=== PATIENT | male | born 1960 | race Caucasian/White ===

== ENCOUNTER 2018-07-04 13:53 | Inpatient (IN) | payer MEDICARE, MEDICAID ==
[2018-07-04] VITALS (9 sets, daily range): BP systolic 108–149; BP diastolic 75–101; BMI 54.7
[~2018-07-04] VITALS: Ht 185.4 cm; Wt 185.9 kg
--- NOTE | ~2018-07-04 | MORECARE ---
CASE MANAGEMENT DISCHARGE SUMMARY PATIENT: STAS HERNÁNDEZ UNIT: [id number] ADM DATE: 07/04/18 AGE: 58 : 64 SEX: M ROOM/BED: D.2309 AUTHOR: MARSHA MTZ PHYSICIAN: REFERRING PHYSICIAN: JOVANNA VAZQUEZ DO DATE OF SERVICE: 07/09/18 Discharge Plan Patient Name: STAS HERNÁNDEZ Facility: [facility]:[place] : 1960 Planned Disposition: Anticipated Discharge Date: Discharge Date: Expected LOS: Initial Reviewer: [email or web address] Initial Review Date: 07/09/2018 Generated: 07/09/18 8:31 pm Patient Name: STAS HERNÁNDEZ Page 64695 at 1931 All edits/amendments must be made on the electronic document DICTATION DATE: 07/09/181930 BUGGY LOADER: DEB 07/09/181930 RPT#: [id number] DC DATE: STATUS: ADM IN [facility] [address] [place] [address] END OF REPORT
--- NOTE | ~2018-07-04 | HEMODYNAMI ---
PATIENT:STAS HERNÁNDEZ MEDICAL RECORD: [id number] : 64 LOCATION:[facility] D.2309 ADMISSION DATE: 07/04/18 Generatedon:07/06/201814:29 Patient name: STAS HERNÁNDEZ Patient #: [id number] SSN: : 1960 Date of study: 07/06/2018 Page: Of Hemodynamic Procedure Report Patient Data Patient Demographics Procedure consent was obtained First Name: STAS Gender: Male Last Name: BETTY : 1960 Patient #: [id number] Age: 58 year(s) Race: Unknown Additional ID: [id number] Contact details Address: [address] [place] [address] State: [place] City: [facility] Zip code: [address] Admission Admission Data Admission Date: 07/04/2018 Admission Time: 16:20 Room #: D.2309 Procedure Procedure Types Cath Procedure Peripheral Cath Diagnostic Procedure Liver TIPSS Procedure Description Procedure Date Procedure Date: 07/06/2018 Procedure Start Time: 13:00 Procedure Staff Name Function Fabien Herrera MD Performing Physician Jhonathan Lou RT Scrub Jane Travis RN Nurse Mary Doan RT Monitor Daniel Conn CRNA Additional personnel Procedure Data Cath Procedure Fluoroscopy Diagnostic fluoroscopy Total fluoroscopy Time: time: 19.8 min 19.8 min Diagnostic fluoroscopy Total fluoroscopy dose: dose: 4908 mGy 4908 mGy Contrast Material Contrast Material Type Amount (ml) Isovue 300 65 Diagnostic catheters Device Type Used For End Catheter Placement Merit UHF Pigtail VESSEL SIZING 5Fr 65CM catheter ([id number]) DIAGNOSTIC MPA-2 5Fr catheter ([id number]) Procedure Medications Medication Administration Route Dosage Heparin Flush Bag added to field 2 bags (1000units/500ml NS) Lidocaine 1% added to field 20 Ancef (1Gm/50ml NS) I.V.P.B 1 g Hemodynamics Rest Heart Rate: 87 (bpm) Pressure Samples Time Site Value (mmHg) Purpose Heart Use Rate(bpm) 13:14 RA 4/ (3) Snapshot 84 13:15 Hepatic (6) Snapshot 84 13:54 Portal 32/32(31) Snapshot 88 14:10 Portal 29/24(25) Snapshot 85 14:10 Portal 27/24(24) Snapshot 86 14:10 Portal 29/24(25) Snapshot 86 14:11 Portal 30/23(25) Snapshot 86 14:12 Portal 25/22(23) Snapshot 85 Snapshots Pre Cath Intra NCS Post Cath Vital Signs Time Heart Resp SPO2 etCO2 NIBP (mmHg) Rhythm Pain Sedation Rate (ipm) (%) (mmHg) Status Level (bpm) 12:26:45 88 14 96 0 138/83(112) NSR 0 (11) 10(A) , No pain 12:36:52 88 46 100 0 Aborted NSR 0 (11) 10(A) , No pain 12:38:54 87 12 99 0 129/88(105) NSR 0 (11) 10(A) , No pain 12:43:29 83 20 100 0 125/79(98) NSR 0 (11) 10(A) , No pain 12:48:01 83 100 0 117/79(92) NSR 0 (11) 10(A) , No pain 12:52:26 85 12 100 0 120/81(94) NSR 0 (11) 10(A) , No pain 12:56:56 86 15 100 0 115/76(88) NSR 0 (11) 10(A) , No pain 13:01:26 88 5 100 0 110/71(90) NSR 0 (11) 10(A) , No pain 13:05:55 84 13 100 0 104/72(78) NSR 0 (11) 10(A) , No pain 13:10:23 84 99 0 106/64(79) NSR 0 (11) 10(A) , No pain 13:14:47 84 99 0 114/72(87) NSR 0 (11) 10(A) , No pain 13:19:20 83 7 99 0 113/68(84) NSR 0 (11) 10(A) , No pain 13:23:46 83 99 0 112/71(88) NSR 0 (11) 10(A) , No pain 13:28:14 83 9 99 0 108/70(84) NSR 0 (11) 10(A) , No pain 13:33:13 90 17 99 0 Measuring NSR 0 (11) 10(A) , No pain 13:33:40 90 14 99 0 135/88(109) NSR 0 (11) 10(A) , No pain 13:38:10 88 16 99 0 130/88(100) NSR 0 (11) 10(A) , No pain 13:42:43 87 13 99 0 136/84(101) NSR 0 (11) 10(A) , No pain 13:47:11 86 15 99 0 116/83(102) NSR 0 (11) 10(A) , No pain 13:51:37 85 18 99 0 119/78(92) NSR 0 (11) 10(A) , No pain 13:56:04 86 17 99 0 125/82(103) NSR 0 (11) 10(A) , No pain 14:00:36 82 12 99 0 110/76(86) NSR 0 (11) 10(A) , No pain 14:04:52 87 17 98 0 126/90(105) NSR 0 (11) 10(A) , No pain 14:09:16 84 21 96 0 142/93(115) NSR 0 (11) 10(A) , No pain 14:13:55 85 15 94 0 142/93(111) NSR 0 (11) 10(A) , No pain 14:18:33 96 17 85 0 146/97(115) NSR 0 (11) 10(A) , No pain 14:23:12 93 31 86 0 128/85(99) NSR 0 (11) 10(A) , No pain 14:28:11 90 10 0 Measuring NSR 0 (11) 10(A) , No pain Medications Time Medication Route Dose Verified Delivered Reason Notes Effe ctiveness by by 12:26:02 Heparin Flush added 2 Fabien Conn used for Bag to bags Javier Herrera procedure (1000units/500ml field MD PRINCE NS) 12:40:38 Lidocaine 1% added 20ml Fabien Conn used for to vial Javier Herrera procedure field MD PRINCE 12:51:19 Ancef (1Gm/50ml I.V.P.B 1 g Fabien Lara Per NS) Javier Travis RN physician MD Procedure Log Time Note 12:11:34 Jhonathan Lou RT (R) (CV) sent for patient. Start room use. 12:11:44 Time tracking: Regular hours (M-F 7:00 - 5:00) 12:11:49 Plan of Care:Hemodynamics will remain stable., Cardiac rhythm will remain stable., Comfort level will be maintained., Respiratory function will remain adequate., Patient/ family verbilizes understanding of procedure., Procedure tolerated without complication., Recovers from procedure without complications.. 12:11:52 Use device set IR Diagnostic 12:11:53 ACIST Syringe (07427) opened to sterile field. 12:11:53 ACIST Hand Control (23509) opened to sterile field. 12:11:54 ACIST Manifold (73122) opened to sterile field. 12:11:54 Bag Decanter (2001S) opened to sterile field. 12:11:54 Sterile Angiographic Pack opened to sterile field. 12:11:55 Tegaderm 4 x 4 (1626W) opened to sterile field. 12:12:04 Patient received from ICU to IR Alert and oriented. Tansferred to table in Supine position. 12:12:05 Correct patient and procedure confirmed by team. 12:12:06 Warm blankets applied, and ute hugger turned on for patient comfort. 12:12:08 Signed procedure consent form obtained from patient. 12:12:09 ECG and BP/O2 sat monitors applied to patient. 12:12:11 Full Disclosure recording started 12:12:11 - 12:12:15 H&P Date Dictated: 07/06/2018 Within 30 days and on chart.. 12:12:16 Pre-procedure instructions explained to patient. 12:12:16 Pre-op teaching completed and patient verbalized understanding. 12:12:18 Family unavailable. 12:12:19 Patient NPO since Midnight. 12:12:22 - 12:12:43 SEE ANESTHESIA NOTE FOR PRE PROCEDURE TIVA 12:12:44 - 12:20:10 Right neck area was prepped with chlora-prep and draped in sterile fashion 12:20:11 Alarms reviewed by RAlma N. 12:20:12 Sharps counted by scrub and verified by RAlmaN. 12:26:02 Heparin Flush Bag (1000units/500ml NS) 2 bags added to field was administered by Fabien Herrera MD; used for procedure; 12:35:57 A EyeCyte UHF Pigtail VESSEL SIZING 5Fr 65CM catheter ([id number]) was advanced over the wire and used for . 12:36:01 A DIAGNOSTIC MPA-2 5Fr catheter ([id number]) was advanced over the wire an d used for . 12:36:03 TORQUE DEVICE PLASTIC .038 ( TD01) opened to sterile field. 12:36:04 BENTSON 145cm wire (M43688) opened to sterile field. 12:36:05 KIT, TRANSJUGULAR LIVER ACCESS R opened to sterile field. 12:36:06 GLIDE WIRE MERIT Angled 260cm ([id number]) opened to sterile field. 12:36:08 TUBING Contrast Injection High Pressure (JAH246O) opened to sterile field. 12:36:10 TUBING Contrast Injection High Pressure (TLA304W) opened to sterile field. 12:36:11 Micropuncture VSI 4FR kit opened to sterile field. 12:37:49 Baseline sample Acquired. 12:37:58 - 12:38:00 ----Pre-sedation anethsthesia assessment.----see anesthesia notes for monitoring of patient during procedure. general anesthesia 12:40:38 Lidocaine 1% 20ml vial added to field was administered by Fabien diez MD; used for procedure; 12:51:19 Ancef (1Gm/50ml NS) 1 g I.V.P.B was administered by Jane Travis RN; Per physician; 12:59:11 Physician arrived 12:59:31 --------ALL STOP TIME OUT------ 12:59:32 Final Timeout: patient, procedure, and site verified with staff and physician. All members of the team are in agreement. 13:00:13 Procedure started. 13:00:20 Local anesthetic to right IJ vein with Lidocaine 1% by Fabien Herrera MD.INITIAL ACCESS ONLY 13:03:40 Venous access obtained using ultrasound guidance. 13:14:10 Zero performed for pressure channel P1 13:17:29 GLIDE CATHETER 5FR ANGLED 65cm (CG507) opened to sterile field. 13:18:08 AMPLATZ Short Taper 260cm wire ([id number]) opened to sterile field. 13:35:19 KIT, TRANSJUGULAR LIVER ACCESS R opened to sterile field. 13:42:55 INFLATOR BasixTOUCH (TQ9132) opened to sterile field. 13:44:22 CXI Catheter 90cm (Z81414) opened to sterile field. 13:50:09 Inflate balloon Inflation number: 1 A Evercross 4 x 4 x 135 Balloon ([id number]) was prepped and advanced across the Undefined1, then inflated. 14:03:21 VIATORR 8-10x7/2cm stent ([id number]) was deployed across Undefined1 . 14:05:46 Inflate balloon Inflation number: 2 A Evercross 8 x 40 x 80 ([id number]) was prepped and advanced across the Undefined1, then inflated. 14:06:47 Inflate balloon Inflation number: 3 A Evercross 10 x 40 x 80 Balloon ([id number]) was prepped and advanced across the Undefined1, then inflated. 14:17:05 Procedure ended.(Physican Out) 14:19:46 Fluoroscopy time 19.80 minutes. 14:19:51 Fluoroscopy dose: 4908 mGy 14:19:51 Flurop Dose total: 4908 14:20:02 Contrast amount:Isovue 300 65ml. 14:20:05 Procedure and supply charges have been captured, reviewed, submitted an d are correct. 14:29:20 Report given to ICU. 14:29:52 Vital chart was stopped Intervention Summary Intervention Notes Time ActionType Lesion and Equipment Used Action# Pressure Duration Attributes 13:50:09 Inflate Undefined1 Evercross 4 x 4 1 0 00:00 balloon x 135 Balloon ([id number]) 14:03:21 Deploy self Undefined1 VIATORR 10x7 1 expanding stent stent ([id number]) 14:05:46 Inflate Undefined1 Evercross 8 x 2 0 00:00 balloon 40 x 80 ([id number]) 14:06:47 Inflate Undefined1 Evercross 10 x 3 0 00:00 balloon 40 x 135 Balloon ([id number]) Device Usage Item Name Manufacture Quantity Catalog Number Hospital Part Current M inimal Lot# / Charge Number Stock Stock Serial# Code ACIST Syringe Acist 1 87699 872894 966008 148915 2 0 (43186) Medical Systems Inc ACIST Hand Acist 1 89431 367503 755159 153170 5 Control (24407) Medical Systems Inc ACIST Manifold Acist 1 63715 221513 137372 128573 5 (72195) Medical Systems Inc Bag Decanter Microtek 1 2001S 862276 40660 768888 5 (2001S) Medical Inc. Sterile Cardinal 1 [id number] 198581 151620 5 Angiographic Health Pack Tegaderm 4 x 4 3M 1 1626W 048818 975085 881032 5 (1626W) Merit UHF Merit 1 7602-20M65 871373 249438 5 Pigtail VESSEL Medical SIZING 5Fr 65CM catheter ([id number]) DIAGNOSTIC Cardinal 1 687525T 083314 519522 570737 5 MPA-2 5Fr Health catheter (827131Q) TORQUE DEVICE Buras 1 TD01 450092 668572 137906 5 PLASTIC .038 ( Scientific TD01) BENTSON 145cm Cook Medical 1 B55732 978281 587364 5 wire (L23258) KIT, Cook Medical 2 J69705 867080 666349 5 [id number] TRANSJUGULAR 1280847 LIVER ACCESS R GLIDE WIRE Merit 1 [id number] 390027 942833 857399 5 [id number] MERIT Angled Medical 260cm ([id number]) TUBING Contrast Merit 2 NCJ593S 156561 697428 618995 5 Injection High Medical Pressure (MHA041L) Micropuncture VSI VASCULAR 1 7266V 103611 185537 5 VSI 4FR kit SOLUTIONS GLIDE CATHETER Terumo 1 CG507 607372 822645 5 5FR ANGLED 65cm (CG507) AMPLATZ Short Buras 1 [id number] 430314 749155 865922 5 Taper 260cm Scientific wire ([id number]) INFLATOR Merit 1 UI9857 224315 100166 669999 5 nodila [facility] (RV7443) CXI Catheter Cook Medical 1 H42903 467520 831871 824042 5 7932076 90cm (V62589) Evercross 4 x 4 Medtronic 1 [id number] 510615 698170 798541 5 [id number] x 135 Balloon ([id number]) VIATORR 10x7 [place] 1 ADN186987 831023 383751 471085 5 [id number] stent ([id number]) Evercross 8 x Medtronic 1 [id number] 622010 468966 570128 5 [id number] 40 x 80 ([id number]) Evercross 10 x Medtronic 1 [id number] 717165 755658 628363 5 [id number] 40 x 135 Balloon ([id number]) Signature Audit [place] Stage Time Signature Unsigned Intra-Procedure 07/06/2018 Mary Doan 2:29:47 PM RT(R) Signatures Monitor : Mary Doan RT Signature : Date : Time : [facility] [address] [place] [address]
--- NOTE | ~2018-07-04 | MORECARE ---
CASE MANAGEMENT DISCHARGE SUMMARY PATIENT: STAS HERNÁNDEZ UNIT: [id number] ADM DATE: 07/04/18 AGE: 58 : 64 SEX: M ROOM/BED: D.2309 AUTHOR: MARSHA MTZ PHYSICIAN: REFERRING PHYSICIAN: JOVANNA VAZQUEZ DO DATE OF SERVICE: 07/11/18 Discharge Plan Patient Name: STAS HERNÁNDEZ Facility: [facility]:[place] : 1960 Planned Disposition: Anticipated Discharge Date: Discharge Date: Expected LOS: Initial Reviewer: [email or web address] Initial Review Date: 07/09/2018 Generated: 07/11/18 10:41 am External Providers External Provider: [facility] Next Contact Date: Service Request Date: Service Type: Resolution: Reviewer: Comments: Last DP export: 07/09/18 6:31 p Patient Name: STAS HERNÁNDEZ Page 05388 at 0941 All edits/amendments must be made on the electronic document DICTATION DATE: 07/11/18940 PRODUCTION ANALYST: DEB 07/11/18940 RPT#: [id number] DC DATE: STATUS: ADM IN [facility] [address] [place] [address] END OF REPORT
--- NOTE | ~2018-07-04 | MORECARE ---
CASE MANAGEMENT DISCHARGE SUMMARY PATIENT: STAS HERNÁNDEZ UNIT: [id number] ADM DATE: 07/04/18 AGE: 58 : 64 SEX: M ROOM/BED: D.2309 AUTHOR: MARSHA MTZ PHYSICIAN: REFERRING PHYSICIAN: MANI VAZQUEZ DO DATE OF SERVICE: 07/11/18 Discharge Plan Patient Name: STAS HERNÁNDEZ [facility] : 1960 Planned Disposition: Acute Care Hospital Anticipated Discharge Date: Discharge Date: Expected LOS: Initial Reviewer: [email or web address] Initial Review Date: 07/11/2018 Generated: 07/11/18 3:43 pm Comments DCP- Discharge Planning Updated by [email or web address]: Marixa Vu on 07/11/18 1:[address] Patient Name: STAS HERNÁNDEZ Admission Status: ER Accout number: [id number] Admission Date: 07-04-2018 : 1960 Admission Diagnosis:GASTROINTESTINAL HEMORRHAGE, UNSPECIFIED Attending: Mani Vazquez Current LOS: 7 Anticipated DC Date: Planned Disposition: [facility] Primary Insurance: [employer] Discharge Planning Comments:07/11/18 @ 0900 CM received notice this am that patient needs transfer to [facility] for liver transplant evaluation / admission. CM contacted transfer center and faxed face sheet. 07/11/18 @ 1112 CM contacted transfer center and patient has been accepted to [facility] but waiting on ICU bed availability. CM will continue to follow and assist as needed with discharge planning / needs. Checkering Machine Operator: Marixa Vu Last DP export: 07/11/18 1:32 p Patient Name: STAS HERNÁNDEZ Page 59800 at 1443 All edits/amendments must be made on the electronic document DICTATION DATE: 07/11/181442 MARKETING MGR: DEB 07/11/18 144 RPT#: [id number] DC DATE: STATUS: ADM IN [facility] [address] [place] [address] END OF REPORT
--- NOTE | ~2018-07-04 | MORECARE ---
CASE MANAGEMENT DISCHARGE SUMMARY PATIENT: STAS HERNÁNDEZ UNIT: [id number] ADM DATE: 07/04/18 AGE: 58 : 64 SEX: M ROOM/BED: D.2309 AUTHOR: MARSHA MTZ PHYSICIAN: REFERRING PHYSICIAN: JOVANNA VAZQUEZ DO DATE OF SERVICE: 07/11/18 Discharge Plan Patient Name: STAS HERNÁNDEZ [facility] [facility] 1960 Planned Disposition: Acute Care Hospital Anticipated Discharge Date: Discharge Date: Expected LOS: Initial Reviewer: [email or web address] Initial Review Date: 07/11/2018 Generated: 07/11/18 3:32 pm Last DP export: 07/11/18 8:41 a Patient Name: STAS HERNÁNDEZ Page 14900 at 1432 All edits/amendments must be made on the electronic document DICTATION DATE: 07/11/18 1432 DIRECTOR HEART: DEB 07/11/18 1432 RPT#: [id number] DC DATE: STATUS: ADM IN [facility] [address] [place] [address] END OF REPORT
--- NOTE | ~2018-07-04 | MORECARE ---
CASE MANAGEMENT DISCHARGE SUMMARY PATIENT: STAS HERNÁNDEZ UNIT: [id number] ADM DATE: 07/04/18 AGE: 58 : 64 SEX: M ROOM/BED: D.2309 AUTHOR: MARSHA MTZ PHYSICIAN: REFERRING PHYSICIAN: MANI VAZQUEZ DO DATE OF SERVICE: 07/12/18 Discharge Plan Patient Name: STAS HERNÁNDEZ Facility: [facility]:[place] : 1960 Planned Disposition: Acute Care Hospital Anticipated Discharge Date: Discharge Date: 07/11/2018 Expected LOS: Initial Reviewer: [email or web address] Initial Review Date: 07/11/2018 Generated: 07/12/18 3:23 pm Comments DCP- Discharge Planning Updated by [email or web address]: Marixa Vu on 07/11/18 1:[address] Patient Name: STAS HERNÁNDEZ Admission Status: ER Accout number: [id number] Admission Date: 07-04-2018 : 1960 Admission Diagnosis:GASTROINTESTINAL HEMORRHAGE, UNSPECIFIED Attending: Mani Vazquez Current LOS: 7 Anticipated DC Date: Planned Disposition: [facility] Primary Insurance: [employer] Discharge Planning Comments:07/11/18 @ 0900 CM received notice this am that patient needs transfer to [facility] for liver transplant evaluation / admission. CM contacted transfer center and faxed face sheet. 07/11/18 @ 1115 CM contacted transfer center and patient has been accepted to [facility] but waiting on ICU bed availability. CM will continue to follow and assist as needed with discharge planning / needs. Clipper Machine Operator: Marixa Vu Last DP export: 07/11/18 1:43 p Patient Name: STAS HERNÁNDEZ Page 67740 at 1423 All edits/amendments must be made on the electronic document DICTATION DATE: 07/12/181422 PRESCHOOL ADVISER: DEB 07/12/181422 RPT#: [id number] DC DATE:07/11/18 STATUS: DIS IN [facility] [address] [place] [address] END OF REPORT
[2018-07-04 15:20] LABS: INR 1.32 (0.85-1.17); PROTIME 15.8 SECONDS (11.6-15.0)
[2018-07-04 15:23] LABS: BASOPHILS 0.4 % (0-2); EOSINOPHILS 2.4 % (0-7); HEMATOCRIT 37.8 % (42.0-54.0); HEMOGLOBIN 12.7 g/dL (13.5-17.5); IMMATURE GRANULOCYTES 0.4 % (0-5); LYMPHOCYTES 19.2 % (15-50); MCH 31.1 pg (26.0-34.0); MCHC 33.6 g/dL (31.0-37.0); MCV 92.4 fL (80.0-100.0); MONOCYTES 3.9 % (2-11); NEUTROPHILS 73.7 % (40-80); PLATELET COUNT 187 10x3/uL (130-400); RBC 4.09 10x6/uL (4.20-6.10); RDW 13.9 % (11.5-14.5); WBC 10.6 10x3/uL (4.8-10.8)
[2018-07-04 15:28] LABS: ALBUMIN 2.6 g/dL (3.4-5.0); ALKALINE PHOSPHATASE 83 U/L (46-116); ALT (SGPT) 32 U/L (10-68); BILIRUBIN - TOTAL 1.89 mg/dL (0.2-1.3); CALC OSMOLALITY 280 mosm/kg (275-300); CALCIUM 8.5 mg/dL (8.5-10.1); CARBON DIOXIDE 27.1 mmol/L (21.0-32.0); CHLORIDE - SERUM 103 mmol/L (98-107); CREATININE - SERUM 1.8 mg/dL (0.6-1.3); GLUCOSE 215 mg/dL (74-106); POTASSIUM - SERUM 4.7 mmol/L (3.5-5.1); PROTEIN - SERUM 6.8 g/dL (6.4-8.2); SODIUM 136 mmol/L (136-145); UREA NITROGEN 20 mg/dL (7-18); eGFR NON AFRICAN AMERICAN 42 mL/min (90-120)
[2018-07-04 15:32] LABS: AMYLASE - SERUM 32 U/L (25-115); LIPASE 120 U/L (73-393); TROPONIN-I < 0.017 ng/mL (0.000-0.060)
[2018-07-04] MEDS ORDERED: FERROUS SULFAT325 MG PO (19:07)
[2018-07-04] MEDS ORDERED: FISH OIL 1,0001 CA1 PO (19:08)
[2018-07-04] MEDS ORDERED: CHRONULAC30 ML PO (19:09)
[2018-07-04 21:00] LABS: HEMATOCRIT 37.4 % (42.0-54.0); HEMOGLOBIN 12.4 g/dL (13.5-17.5)
[2018-07-04 22:23] LABS: PROTEIN - URINE 9.7 mg/dL (0.0-11.9)
[2018-07-04 22:24] LABS: CREATININE - URINE 230.9 mg/dL (30-125)
[2018-07-05] VITALS (25 sets, daily range): BP systolic 112–160; BP diastolic 77–96; BMI 54.6
[2018-07-05 00:52] LABS: APPEARANCE CLOUDY (CLEAR); BILIRUBIN NEGATIVE (NEGATIVE); COLOR DK YELLOW (YELLOW); GLUCOSE NEGATIVE (NEGATIVE); KETONE NEGATIVE (NEGATIVE); NITRITE POSITIVE (NEGATIVE); PROTEIN TRACE mg/dL (NEGATIVE); UROBILINOGEN NORMAL (NORMAL)
[2018-07-05 00:53] LABS: AMORPHOUS SEDIMENT >1+ /lpf (NONE SEEN); BACTERIA MANY /hpf (NONE SEEN); EPITHELIAL CELLS 0-5 /hpf (0-5); RED CELLS - URINE NONE SEEN /hpf (0-5); WHITE CELLS - URINE 0-5 /hpf (0-5)
[2018-07-05 04:55] LABS: BASOPHILS 0.2 % (0-2); EOSINOPHILS 0.8 % (0-7); HEMATOCRIT 30.5 % (42.0-54.0); HEMOGLOBIN 10.2 g/dL (13.5-17.5); IMMATURE GRANULOCYTES 0.3 % (0-5); LYMPHOCYTES 18.5 % (15-50); MCHC 33.4 g/dL (31.0-37.0); MCV 92.7 fL (80.0-100.0); MEAN PLATELET VOLUME 10.3 fL (7.4-10.4); MONOCYTES 5.2 % (2-11); RBC 3.29 10x6/uL (4.20-6.10); RDW 14.2 % (11.5-14.5); WBC 9.1 10x3/uL (4.8-10.8)
[2018-07-05 05:04] LABS: INR 1.41 (0.85-1.17); PROTIME 16.7 SECONDS (11.6-15.0)
[2018-07-05 05:09] LABS: PLATELET COUNT 148 10x3/uL (130-400)
[2018-07-05 05:39] LABS: ALBUMIN 2.6 g/dL (3.4-5.0); ALKALINE PHOSPHATASE 69 U/L (46-116); BILIRUBIN - TOTAL 1.85 mg/dL (0.2-1.3); CALCIUM 8.1 mg/dL (8.5-10.1); CARBON DIOXIDE 26.2 mmol/L (21.0-32.0); CHLORIDE - SERUM 105 mmol/L (98-107); CREATINE KINASE 327 UL (21-232); CREATININE - SERUM 1.6 mg/dL (0.6-1.3); MAGNESIUM - SERUM 1.6 mg/dL (1.8-2.4); POTASSIUM - SERUM 5.1 mmol/L (3.5-5.1); PROTEIN - SERUM 6.3 g/dL (6.4-8.2); SODIUM 139 mmol/L (136-145); UREA NITROGEN 24 mg/dL (7-18); eGFR NON AFRICAN AMERICAN 48 mL/min (90-120)
[2018-07-05 05:42] LABS: ALT (SGPT) 58 U/L (10-68); CALC OSMOLALITY 284 mosm/kg (275-300); GLUCOSE 161 mg/dL (74-106)
[2018-07-05 05:44] LABS: CKMB 2.7 U/L (0.0-3.6)
[2018-07-05 13:33] LABS: HEMATOCRIT 27.6 % (42.0-54.0); HEMOGLOBIN 9.4 g/dL (13.5-17.5)
[2018-07-05 19:12] LABS: HEMOGLOBIN 9.3 g/dL (13.5-17.5)
[2018-07-06] VITALS (22 sets, daily range): BP systolic 96–152; BP diastolic 65–98
[2018-07-06 03:41] LABS: BASOPHILS 0.3 % (0-2); EOSINOPHILS 1.6 % (0-7); HEMOGLOBIN 9.2 g/dL (13.5-17.5); IMMATURE GRANULOCYTES 0.3 % (0-5); LYMPHOCYTES 19.2 % (15-50); MCH 30.7 pg (26.0-34.0); MCHC 32.9 g/dL (31.0-37.0); MCV 93.3 fL (80.0-100.0); MEAN PLATELET VOLUME 9.5 fL (7.4-10.4); MONOCYTES 6.6 % (2-11); RDW 14.3 % (11.5-14.5)
[2018-07-06 03:45] LABS: INR 1.23 (0.85-1.17); PROTIME 14.9 SECONDS (11.6-15.0)
[2018-07-06 03:47] LABS: WBC 3.7 10x3/uL (4.8-10.8)
[2018-07-06 03:48] LABS: PLATELET COUNT 102 10x3/uL (130-400)
[2018-07-06 03:57] LABS: ALBUMIN 2.8 g/dL (3.4-5.0); BILIRUBIN - TOTAL 1.46 mg/dL (0.2-1.3); CARBON DIOXIDE 30.4 mmol/L (21.0-32.0); CREATININE - SERUM 1.8 mg/dL (0.6-1.3); MAGNESIUM - SERUM 1.7 mg/dL (1.8-2.4); PHOSPHOROUS 3.2 mg/dL (2.5-4.9); PROTEIN - SERUM 6.6 g/dL (6.4-8.2)
[2018-07-06 03:58] LABS: ANION GAP 9.3 mmol/L (8-16); POTASSIUM - SERUM 3.7 mmol/L (3.5-5.1)
[2018-07-06 04:26] LABS: THYROID STIMULATING HORMONE 109.06 uIU/mL (0.36-3.74)
[2018-07-06 09:16] LABS: HEPATITIS C ANTIBODY <0.1 S/CO RAT (0.0-0.9)
[2018-07-06 09:46] LABS: HEMATOCRIT 24.1 % (42.0-54.0); HEMOGLOBIN 9.9 g/dL (13.5-17.5)
[2018-07-06 15:59] LABS: HEMATOCRIT 26.3 % (42.0-54.0); HEMOGLOBIN 8.8 g/dL (13.5-17.5)
[2018-07-06 20:11] LABS: HEMATOCRIT 27.3 % (42.0-54.0)
[2018-07-07] VITALS (11 sets, daily range): BP systolic 112–155; BP diastolic 70–96
[2018-07-07 03:53] LABS: ALBUMIN 2.7 g/dL (3.4-5.0); ANION GAP 13.6 mmol/L (8-16); BILIRUBIN - TOTAL 2.53 mg/dL (0.2-1.3); CALCIUM 7.8 mg/dL (8.5-10.1); CARBON DIOXIDE 26.1 mmol/L (21.0-32.0); CREATININE - SERUM 1.7 mg/dL (0.6-1.3); MAGNESIUM - SERUM 1.9 mg/dL (1.8-2.4); PHOSPHOROUS 2.5 mg/dL (2.5-4.9); POTASSIUM - SERUM 3.7 mmol/L (3.5-5.1); PROTEIN - SERUM 6.5 g/dL (6.4-8.2)
[2018-07-07 04:11] LABS: BASOPHILS 0.2 % (0-2); EOSINOPHILS 0.6 % (0-7); HEMOGLOBIN 10.3 g/dL (13.5-17.5); IMMATURE GRANULOCYTES 0.6 % (0-5); LYMPHOCYTES 5.1 % (15-50); MCHC 33.2 g/dL (31.0-37.0); MCV 93.4 fL (80.0-100.0); MONOCYTES 5.1 % (2-11); NEUTROPHILS 88.4 % (40-80); PLATELET COUNT 90 10x3/uL (130-400); RBC 3.32 10x6/uL (4.20-6.10); RDW 14.7 % (11.5-14.5)
[2018-07-07 04:12] LABS: WBC 10.1 10x3/uL (4.8-10.8)
[2018-07-07 09:39] LABS: HEMATOCRIT 28.9 % (42.0-54.0); HEMOGLOBIN 9.6 g/dL (13.5-17.5)
[2018-07-07 11:43] LABS: HEMATOCRIT 28.8 % (42.0-54.0); HEMOGLOBIN 9.7 g/dL (13.5-17.5)
[2018-07-07 23:21] LABS: HEMATOCRIT 31.1 % (42.0-54.0); HEMOGLOBIN 10.5 g/dL (13.5-17.5)
[2018-07-08] VITALS (25 sets, daily range): BP systolic 99–165; BP diastolic 53–115; Ht 185.4 cm; Wt 185.9 kg
[2018-07-08 04:29] LABS: BASOPHILS 0.4 % (0-2); EOSINOPHILS 1.6 % (0-7); HEMATOCRIT 31.7 % (42.0-54.0); HEMOGLOBIN 10.6 g/dL (13.5-17.5); IMMATURE GRANULOCYTES 0.5 % (0-5); LYMPHOCYTES 11.2 % (15-50); MCH 30.9 pg (26.0-34.0); MCHC 33.4 g/dL (31.0-37.0); MCV 92.4 fL (80.0-100.0); MEAN PLATELET VOLUME 10.2 fL (7.4-10.4); MONOCYTES 7.9 % (2-11); NEUTROPHILS 78.4 % (40-80); RBC 3.43 10x6/uL (4.20-6.10); RDW 15.2 % (11.5-14.5)
[2018-07-08 04:31] LABS: PLATELET COUNT 65 10x3/uL (130-400); WBC 7.5 10x3/uL (4.8-10.8)
[2018-07-08 04:43] LABS: INR 1.51 (0.85-1.17); PROTIME 17.6 SECONDS (11.6-15.0)
[2018-07-08 04:51] LABS: PLATELET ESTIMATE DECREASED
[2018-07-08 04:53] LABS: ALBUMIN 2.5 g/dL (3.4-5.0); ANION GAP 12.1 mmol/L (8-16); BILIRUBIN - TOTAL 3.92 mg/dL (0.2-1.3); CALCIUM 8.3 mg/dL (8.5-10.1); CARBON DIOXIDE 27.8 mmol/L (21.0-32.0); CREATININE - SERUM 1.6 mg/dL (0.6-1.3); POTASSIUM - SERUM 3.9 mmol/L (3.5-5.1); PROTEIN - SERUM 6.1 g/dL (6.4-8.2)
[2018-07-08 11:31] LABS: HEMATOCRIT 33.2 % (42.0-54.0)
[2018-07-09] VITALS (25 sets, daily range): BP systolic 98–154; BP diastolic 51–99
[2018-07-09 05:05] LABS: BASOPHILS 0.4 % (0-2); EOSINOPHILS 0.6 % (0-7); HEMATOCRIT 32.2 % (42.0-54.0); HEMOGLOBIN 10.8 g/dL (13.5-17.5); IMMATURE GRANULOCYTES 1.3 % (0-5); LYMPHOCYTES 9.8 % (15-50); MCHC 33.5 g/dL (31.0-37.0); MCV 92.5 fL (80.0-100.0); MEAN PLATELET VOLUME 9.6 fL (7.4-10.4); NEUTROPHILS 78.9 % (40-80); PLATELET COUNT 70 10x3/uL (130-400); RBC 3.48 10x6/uL (4.20-6.10); RDW 15.6 % (11.5-14.5); WBC 10.6 10x3/uL (4.8-10.8)
[2018-07-09 05:19] LABS: INR 1.75 (0.85-1.17); PROTIME 19.8 SECONDS (11.6-15.0)
[2018-07-09 05:29] LABS: ALBUMIN 2.7 g/dL (3.4-5.0); ANION GAP 14.4 mmol/L (8-16); BILIRUBIN - TOTAL 5.56 mg/dL (0.2-1.3); CALCIUM 8.3 mg/dL (8.5-10.1); CARBON DIOXIDE 26.3 mmol/L (21.0-32.0); CREATININE - SERUM 1.7 mg/dL (0.6-1.3); POTASSIUM - SERUM 3.7 mmol/L (3.5-5.1); PROTEIN - SERUM 6.1 g/dL (6.4-8.2)
[2018-07-10] VITALS (24 sets, daily range): BP systolic 93–164; BP diastolic 53–134
[2018-07-10 05:32] LABS: BASOPHILS 0.3 % (0-2); EOSINOPHILS 1.3 % (0-7); HEMATOCRIT 31.8 % (42.0-54.0); HEMOGLOBIN 10.8 g/dL (13.5-17.5); IMMATURE GRANULOCYTES 2.4 % (0-5); LYMPHOCYTES 12.6 % (15-50); MCH 31.5 pg (26.0-34.0); MCV 92.7 fL (80.0-100.0); MEAN PLATELET VOLUME 8.7 fL (7.4-10.4); MONOCYTES 8.2 % (2-11); NEUTROPHILS 75.2 % (40-80); PLATELET COUNT 67 10x3/uL (130-400); RBC 3.43 10x6/uL (4.20-6.10); RDW 16.3 % (11.5-14.5); WBC 11.2 10x3/uL (4.8-10.8)
[2018-07-10 05:54] LABS: INR 1.76 (0.85-1.17); PROTIME 19.9 SECONDS (11.6-15.0)
[2018-07-10 06:20] LABS: ALBUMIN 2.6 g/dL (3.4-5.0); BILIRUBIN - DIRECT 3.29 mg/dL (0.00-0.30); BILIRUBIN - INDIRECT 2.62 mg/dL (0.00-1.00); BILIRUBIN - TOTAL 5.91 mg/dL (0.2-1.3); CALCIUM 8.2 mg/dL (8.5-10.1); CARBON DIOXIDE 26.8 mmol/L (21.0-32.0); CREATININE - SERUM 1.7 mg/dL (0.6-1.3); MAGNESIUM - SERUM 1.8 mg/dL (1.8-2.4); PROTEIN - SERUM 6.4 g/dL (6.4-8.2)
[2018-07-10 06:38] LABS: ANION GAP 14.2 mmol/L (8-16)
[2018-07-10 16:58] LABS: ANION GAP 14.6 mmol/L (8-16); CALCIUM 7.9 mg/dL (8.5-10.1); CARBON DIOXIDE 27.3 mmol/L (21.0-32.0); CREATININE - SERUM 1.7 mg/dL (0.6-1.3); MAGNESIUM - SERUM 1.5 mg/dL (1.8-2.4)
[2018-07-10 16:59] LABS: PHOSPHOROUS 1.8 mg/dL (2.5-4.9)
[2018-07-10 17:00] LABS: POTASSIUM - SERUM 2.9 mmol/L (3.5-5.1)
[2018-07-11] VITALS (28 sets, daily range): BP systolic 91–158; BP diastolic 20–106
[2018-07-11 04:02] LABS: ALBUMIN 2.4 g/dL (3.4-5.0); ANION GAP 10.6 mmol/L (8-16); BILIRUBIN - TOTAL 4.65 mg/dL (0.2-1.3); CALCIUM 7.9 mg/dL (8.5-10.1); CARBON DIOXIDE 28.6 mmol/L (21.0-32.0); CREATININE - SERUM 1.6 mg/dL (0.6-1.3); MAGNESIUM - SERUM 1.8 mg/dL (1.8-2.4); POTASSIUM - SERUM 3.2 mmol/L (3.5-5.1); PROTEIN - SERUM 5.8 g/dL (6.4-8.2)
[2018-07-11 04:08] LABS: PHOSPHOROUS 2.6 mg/dL (2.5-4.9)
[2018-07-11 04:12] LABS: BASOPHILS 0.5 % (0-2); EOSINOPHILS 2.1 % (0-7); HEMATOCRIT 29.1 % (42.0-54.0); HEMOGLOBIN 9.8 g/dL (13.5-17.5); LYMPHOCYTES 12.7 % (15-50); MCH 31.2 pg (26.0-34.0); MCHC 33.7 g/dL (31.0-37.0); MCV 92.7 fL (80.0-100.0); MEAN PLATELET VOLUME 9.4 fL (7.4-10.4); MONOCYTES 8.7 % (2-11); RBC 3.14 10x6/uL (4.20-6.10); RDW 16.9 % (11.5-14.5)
[2018-07-11 04:14] LABS: WBC 7.9 10x3/uL (4.8-10.8)
[2018-07-11 04:15] LABS: PLATELET COUNT 46 10x3/uL (130-400)
[2018-07-11 15:32] LABS: BASOPHILS 0.6 % (0-2); EOSINOPHILS 1.8 % (0-7); HEMATOCRIT 29.3 % (42.0-54.0); HEMOGLOBIN 9.9 g/dL (13.5-17.5); IMMATURE GRANULOCYTES 2.5 % (0-5); LYMPHOCYTES 14.8 % (15-50); MCH 31.7 pg (26.0-34.0); MCHC 33.8 g/dL (31.0-37.0); MCV 93.9 fL (80.0-100.0); MEAN PLATELET VOLUME 8.7 fL (7.4-10.4); MONOCYTES 7.2 % (2-11); NEUTROPHILS 73.1 % (40-80); RBC 3.12 10x6/uL (4.20-6.10); RDW 17.5 % (11.5-14.5); WBC 6.7 10x3/uL (4.8-10.8)
[2018-07-11 15:52] LABS: PLATELET COUNT 47 10x3/uL (130-400)
== END 2018-07-11 23:42 | disposition short-term general hospital (02) | DRG 405 ==
LOC: D.ER 13:53 → D.ICU 16:20
PROVIDERS: Emergency Medicine; Family Medicine; Internal Medicine Gastroenterology; Internal Medicine Nephrology; Radiology Diagnostic Radiology
PROC: 0DJ08ZZ Inspection of Upper Intestinal Tract, Via Natural or Artificial Opening Endoscopic (ICD-10-PCS; 2018-07-04)
PROC: 06183J4 Bypass Portal Vein to Hepatic Vein with Synthetic Substitute, Percutaneous Approach (ICD-10-PCS; principal; 2018-07-06 10:45)
PROC: 05H633Z Insertion of Infusion Device into Left Subclavian Vein, Percutaneous Approach (ICD-10-PCS; 2018-07-08)
DX: K74.60 Unspecified cirrhosis of liver (principal); I85.11 Secondary esophageal varices with bleeding; R18.8 Other ascites; N17.9 Acute kidney failure, unspecified; K76.6 Portal hypertension; K72.90 Hepatic failure, unspecified without coma; K75.81 Nonalcoholic steatohepatitis (NASH); E11.9 Type 2 diabetes mellitus without complications; F17.200 Nicotine dependence, unspecified, uncomplicated; D64.9 Anemia, unspecified; E87.5 Hyperkalemia; E83.42 Hypomagnesemia; E03.9 Hypothyroidism, unspecified; E66.01 Morbid (severe) obesity due to excess calories; I11.0 Hypertensive heart disease with heart failure; I50.9 Heart failure, unspecified

== ENCOUNTER 2018-07-19 15:30 | Inpatient (IN) | payer MEDICARE, MEDICAID ==
[~2018-07-19] VITALS: Ht 185.4 cm; Wt 187.9 kg
--- NOTE | ~2018-07-19 | MORECARE ---
CASE MANAGEMENT DISCHARGE SUMMARY PATIENT: STAS HERNÁNDEZ UNIT: [id number] ADM DATE: 07/19/18 AGE: 58 : 64 SEX: M ROOM/BED: D.2234 AUTHOR: SMITHDOC PHYSICIAN: REFERRING PHYSICIAN: JOE CLARKE MD DATE OF SERVICE: 07/24/18 Discharge Plan Patient Name: STAS HERNÁNDEZ Facility: [facility]:[place] : 1960 Planned Disposition: Home Anticipated Discharge Date: Discharge Date: 07/23/2018 Expected LOS: 0 Initial Reviewer: [email or web address] Initial Review Date: 07/23/2018 Generated: 07/24/18 9:52 am Comments DCP- Discharge Planning Updated by [email or web address]: Jennifer Elizondo on 07/23/18 11:[address] Patient Name: STAS HERNÁNDEZ Admission Status: ER Accout number: [id number] Admission Date: 07-19-2018 : 1960 Admission Diagnosis:HEPATIC FAILURE, UNSPECIFIED WITHOUT COMA Attending: JOE CLARKE Current LOS: 4 Anticipated DC Date: Planned Disposition: Home Primary Insurance: [employer] Discharge Planning Comments: CM met with patient to discuss discharge planning. States he lives up 2 flights of stairs in an apartment building with his and 26 year old son. States he ambulates with a cane. States his older son lives across the sood from him. States he is completely independent with all ADL's and IADL's. States he does not have any outside services assisting in the home. States he is not home bound and declines home health services. States he does not need additional DME. States his will pick him up on discharge. CM will continue to follow and assist with discharge planning/needs. Oleo Hasher And Renderer: Jennifer Elizondo DCPIA - Discharge Planning Initial Assessment Updated by [email or web address]: Jennifer Elizondo on 07/23/18 12:43 pm * Is the patient Alert and Oriented? Yes * How many steps to enter\exit or inside your home? 2 flights/ * PCP Dr. Couch * Pharmacy [facility] on [facility] [address] * Preadmission Environment Home with Family * ADLs Independent * Equipment Cane * List name and contact numbers for known caregivers / representatives who currently or will assist patient after discharge: Bailey - - [phone] Nba - son - [phone] * Verbal permission to speak to the caregivers and representatives has been obtained from the patient. Yes * Community resources currently utilized None * Additional services required to return to the preadmission environment? No * Can the patient safely return to the preadmission environment? Yes * Has this patient been hospitalized within the prior 30 days at any hospital? Yes Coverage Notice Reviewer: [email or web address] Mary Elizondo Notice Issued Date-Time: 07/23/2018 12:37 Notice Type: IM Discharge Notice Notice Delivered To: Patient Relationship to Patient: Self Geothermal Operations Manager Name: Delivery Method: HAND - Hand Delivered Anat Days: Prior Verbal Notification: Recipient Understood Notice: Yes Recipient Signature: Yes Med Rec Note Co-signed by Attending: Coverage Notice Comment: IMM explained, signed, copy given, original placed on MR Last DP export: 07/23/18 11:54 Patient Name: STAS HERNÁNDEZ Page 23065 at 0853 All edits/amendments must be made on the electronic document DICTATION DATE: 07/24/18851 CHILLER HAND: DEB 07/24/18851 RPT#: [id number] DC DATE:07/23/18 STATUS: DIS IN [facility] [address] [place] [address] END OF REPORT
--- NOTE | ~2018-07-19 | MORECARE ---
CASE MANAGEMENT DISCHARGE SUMMARY PATIENT: STAS HERNÁNDEZ UNIT: [id number] ADM DATE: 07/19/18 AGE: 58 : 64 SEX: M ROOM/BED: D.2234 AUTHOR: SMITHDOC PHYSICIAN: REFERRING PHYSICIAN: JOE CLARKE MD DATE OF SERVICE: 07/23/18 Discharge Plan Patient Name: STAS HERNÁNDEZ Facility: [facility]:[place] : 1960 Planned Disposition: Home Anticipated Discharge Date: Discharge Date: Expected LOS: Initial Reviewer: [id number] Initial Review Date: 07/23/2018 Generated: 07/23/18 1:53 pm Comments DCP- Discharge Planning Updated by [id number]: Jennifer Elizondo on 07/23/18 11:[address] Patient Name: STAS HERNÁNDEZ Admission Status: ER Accout number: [id number] Admission Date: 07-19-2018 : 1960 Admission Diagnosis:HEPATIC FAILURE, UNSPECIFIED WITHOUT COMA Attending: JOE CLARKE Current LOS: 4 Anticipated DC Date: Planned Disposition: Home Primary Insurance: [employer] Discharge Planning Comments: CM met with patient to discuss discharge planning. States he lives up 2 flights of stairs in an apartment building with his and 26 year old son. States he ambulates with a cane. States his older son lives across the sood from him. States he is completely independent with all ADL's and IADL's. States he does not have any outside services assisting in the home. States he is not home bound and declines home health services. States he does not need additional DME. States his will pick him up on discharge. CM will continue to follow and assist with discharge planning/needs. Cashier Associate: Jennifer Elizondo DCPIA - Discharge Planning Initial Assessment Updated by [email or web address]: Jennifer Elizondo on 07/23/18 12:43 pm * Is the patient Alert and Oriented? Yes * How many steps to enter\exit or inside your home? 2 flights/ * PCP Dr. Couch * Pharmacy [facility] on [facility] [address] * Preadmission Environment Home with Family * ADLs Independent * Equipment Cane * List name and contact numbers for known caregivers / representatives who currently or will assist patient after discharge: Bailey - - [phone] Nba - son - [phone] * Verbal permission to speak to the caregivers and representatives has been obtained from the patient. Yes * Community resources currently utilized None * Additional services required to return to the preadmission environment? No * Can the patient safely return to the preadmission environment? Yes * Has this patient been hospitalized within the prior 30 days at any hospital? Yes Coverage Notice Reviewer: [id number] Mary Elizondo Notice Issued Date-Time: 07/23/2018 12:37 Notice Type: IM Discharge Notice Notice Delivered To: Patient Relationship to Patient: Self Wheel Assembler Name: Delivery Method: HAND - Hand Delivered Anat Days: Prior Verbal Notification: Recipient Understood Notice: Yes Recipient Signature: Yes Med Rec Note Co-signed by Attending: Coverage Notice Comment: IMM explained, signed, copy given, original placed on MR Last DP export: 07/23/18 11:47 Patient Name: STAS HERNÁNDEZ Page [id number] at 1254 All edits/amendments must be made on the electronic document DICTATION DATE: 07/23/18 1253 GROCERY STORE ASSOCIATE: DEB 07/23/18 1253 RPT#: [id number] DC DATE: STATUS: ADM IN [facility] [address] [place] [address] END OF REPORT
--- NOTE | ~2018-07-19 | MORECARE ---
CASE MANAGEMENT DISCHARGE SUMMARY PATIENT: STAS HERNÁNDEZ UNIT: [id number] ADM DATE: 07/19/18 AGE: 58 : 64 SEX: M ROOM/BED: D.2234 AUTHOR: MARSHA MTZ PHYSICIAN: REFERRING PHYSICIAN: JOE CLARKE MD DATE OF SERVICE: 07/23/18 Discharge Plan Patient Name: STAS HERNÁNDEZ Facility: [facility]:[place] : 1960 Planned Disposition: Home Anticipated Discharge Date: Discharge Date: Expected LOS: Initial Reviewer: [email or web address] Initial Review Date: 07/23/2018 Generated: 07/23/18 1:47 pm DCPIA - Discharge Planning Initial Assessment Updated by [email or web address]: Jennifer Elizondo on 07/23/18 12:43 pm * Is the patient Alert and Oriented? Yes * How many steps to enter\exit or inside your home? 2 flights/ * PCP Dr. Couch * Pharmacy [facility] on [facility] * Preadmission Environment Home with Family * ADLs Independent * Equipment Cane * List name and contact numbers for known caregivers / representatives who currently or will assist patient after discharge: Bailey - - [phone] Nba - son - [phone] * Verbal permission to speak to the caregivers and representatives has been obtained from the patient. Yes * Community resources currently utilized None * Additional services required to return to the preadmission environment? No * Can the patient safely return to the preadmission environment? Yes * Has this patient been hospitalized within the prior 30 days at any hospital? Yes Coverage Notice Reviewer: [id number] - Jennifer Elizondo Notice Issued Date-Time: 07/23/2018 12:37 Notice Type: IM Discharge Notice Notice Delivered To: Patient Relationship to Patient: Self An/Ssn 2 4 Operator Name: Delivery Method: HAND - Hand Delivered Anat Days: Prior Verbal Notification: Recipient Understood Notice: Yes Recipient Signature: Yes Med Rec Note Co-signed by Attending: Coverage Notice Comment: IMM explained, signed, copy given, original placed on MR Patient Name: STAS HERNÁNDEZ Page [id number] at 1247 All edits/amendments must be made on the electronic document DICTATION DATE: 07/23/18 124 LINING STAMPER: DEB 07/23/18 1246 RPT#: [id number] DC DATE: STATUS: ADM IN [facility] [address] [place] [address] END OF REPORT
[~2018-07-19 15:30] MED LIST: CHRONULAC30 ML PO; FERROUS SULFAT325 MG PO; FISH OIL 1,0001 CA1 PO
[2018-07-19 16:16] LABS: BASOPHILS 0.2 % (0-2); EOSINOPHILS 0.7 % (0-7); HEMATOCRIT 30.9 % (42.0-54.0); IMMATURE GRANULOCYTES 0.2 % (0-5); LYMPHOCYTES 16.5 % (15-50); MCH 31.2 pg (26.0-34.0); MCHC 32.4 g/dL (31.0-37.0); MCV 96.3 fL (80.0-100.0); MEAN PLATELET VOLUME 9.4 fL (7.4-10.4); MONOCYTES 7.4 % (2-11); RBC 3.21 10x6/uL (4.20-6.10); RDW 20.7 % (11.5-14.5); WBC 4.3 10x3/uL (4.8-10.8)
[2018-07-19 16:17] LABS: PLATELET COUNT 72 10x3/uL (130-400)
[2018-07-19 16:30] LABS: APTT 34.2 SECONDS (22.8-39.4); INR 1.53 (0.85-1.17); PROTIME 17.8 SECONDS (11.6-15.0)
[2018-07-19 16:37] LABS: ALBUMIN 2.4 g/dL (3.4-5.0); ALKALINE PHOSPHATASE 336 U/L (46-116); ALT (SGPT) 177 U/L (10-68); BILIRUBIN - TOTAL 3.27 mg/dL (0.2-1.3); CALC OSMOLALITY 281 mosm/kg (275-300); CALCIUM 9.3 mg/dL (8.5-10.1); CARBON DIOXIDE 26.6 mmol/L (21.0-32.0); CHLORIDE - SERUM 102 mmol/L (98-107); CREATININE - SERUM 1.7 mg/dL (0.6-1.3); GLUCOSE 182 mg/dL (74-106); POTASSIUM - SERUM 3.8 mmol/L (3.5-5.1); PROTEIN - SERUM 7.3 g/dL (6.4-8.2); SODIUM 139 mmol/L (136-145); UREA NITROGEN 11 mg/dL (7-18); eGFR NON AFRICAN AMERICAN 44 mL/min (90-120)
[2018-07-19 17:08] LABS: PLATELET ESTIMATE DECREASED
[2018-07-19 17:13] LABS: CKMB 4.4 U/L (0.0-3.6); CREATINE KINASE 309 UL (21-232); MAGNESIUM - SERUM 1.9 mg/dL (1.8-2.4); TROPONIN-I < 0.017 ng/mL (0.000-0.060)
[2018-07-19 18:00] LABS: APPEARANCE CLEAR (CLEAR); COLOR YELLOW (YELLOW); NITRITE NEGATIVE (NEGATIVE); SPECIFIC GRAVITY 1.015 (1.005-1.020)
[2018-07-19 18:01] LABS: BILIRUBIN 1+ (NEGATIVE); GLUCOSE NEGATIVE (NEGATIVE); KETONE NEGATIVE (NEGATIVE); PROTEIN TRACE mg/dL (NEGATIVE)
[2018-07-19 18:04] LABS: BACTERIA MANY /hpf (NONE SEEN); RED CELLS - URINE 0-5 /hpf (0-5); WHITE CELLS - URINE 25-50 /hpf (0-5)
[2018-07-19 18:05] LABS: UDS - AMPHET NEGATIVE QUAL (NEGATIVE); UDS - BARB NEGATIVE QUAL (NEGATIVE); UDS - BENZO NEGATIVE QUAL (NEGATIVE); UDS - COCAINE NEGATIVE QUAL (NEGATIVE); UDS - OPIATE NEGATIVE QUAL (NEGATIVE); UDS - PCP NEGATIVE QUAL (NEGATIVE); UDS - THC POSITIVE QUAL (NEGATIVE)
[2018-07-19 19:20] VITALS: BP 148/76
[2018-07-19 21:18] VITALS: BP 131/66
[2018-07-19 22:32] VITALS: BP 140/90
[2018-07-20 12:24] VITALS: BMI 54.7
[2018-07-20 17:15] LABS: BASOPHILS 0.2 % (0-2); EOSINOPHILS 0.7 % (0-7); HEMATOCRIT 30.5 % (42.0-54.0); HEMOGLOBIN 9.7 g/dL (13.5-17.5); IMMATURE GRANULOCYTES 0.2 % (0-5); LYMPHOCYTES 14.5 % (15-50); MCH 30.9 pg (26.0-34.0); MCHC 31.8 g/dL (31.0-37.0); MCV 97.1 fL (80.0-100.0); MEAN PLATELET VOLUME 9.8 fL (7.4-10.4); MONOCYTES 10.4 % (2-11); PLATELET COUNT 71 10x3/uL (130-400); RBC 3.14 10x6/uL (4.20-6.10); RDW 20.9 % (11.5-14.5); WBC 4.4 10x3/uL (4.8-10.8)
[2018-07-20 17:35] LABS: ALBUMIN 2.5 g/dL (3.4-5.0); ANION GAP 14.5 mmol/L (8-16); BILIRUBIN - TOTAL 3.55 mg/dL (0.2-1.3); CALCIUM 8.7 mg/dL (8.5-10.1); CARBON DIOXIDE 24.5 mmol/L (21.0-32.0); CREATININE - SERUM 1.8 mg/dL (0.6-1.3); PROTEIN - SERUM 7.4 g/dL (6.4-8.2)
[2018-07-21] VITALS (7 sets, daily range): BP systolic 117–160; BP diastolic 74–99
[2018-07-21 03:21] LABS: BASOPHILS 0.2 % (0-2); HEMATOCRIT 30.3 % (42.0-54.0); HEMOGLOBIN 9.7 g/dL (13.5-17.5); LYMPHOCYTES 18.5 % (15-50); MCV 96.8 fL (80.0-100.0); MONOCYTES 11.3 % (2-11); PLATELET COUNT 78 10x3/uL (130-400); RBC 3.13 10x6/uL (4.20-6.10); RDW 20.8 % (11.5-14.5); WBC 4.1 10x3/uL (4.8-10.8)
[2018-07-21 03:33] LABS: INR 1.64 (0.85-1.17); PROTIME 18.8 SECONDS (11.6-15.0)
[2018-07-21 03:46] LABS: ALBUMIN 2.4 g/dL (3.4-5.0); ANION GAP 14.3 mmol/L (8-16); BILIRUBIN - TOTAL 3.31 mg/dL (0.2-1.3); CALCIUM 8.6 mg/dL (8.5-10.1); CARBON DIOXIDE 24.4 mmol/L (21.0-32.0); CREATININE - SERUM 1.8 mg/dL (0.6-1.3); MAGNESIUM - SERUM 2.1 mg/dL (1.8-2.4); POTASSIUM - SERUM 3.7 mmol/L (3.5-5.1); PROTEIN - SERUM 7.3 g/dL (6.4-8.2)
[2018-07-22] VITALS (10 sets, daily range): BP systolic 138–164; BP diastolic 84–106; Ht 185.4 cm; Wt 187.9 kg
[2018-07-22 04:34] LABS: BASOPHILS 0.3 % (0-2); EOSINOPHILS 1.3 % (0-7); HEMATOCRIT 27.9 % (42.0-54.0); HEMOGLOBIN 8.8 g/dL (13.5-17.5); LYMPHOCYTES 18.3 % (15-50); MCH 31.1 pg (26.0-34.0); MCHC 31.5 g/dL (31.0-37.0); MCV 98.6 fL (80.0-100.0); MEAN PLATELET VOLUME 9.9 fL (7.4-10.4); MONOCYTES 10.7 % (2-11); NEUTROPHILS 69.4 % (40-80); RBC 2.83 10x6/uL (4.20-6.10); RDW 20.7 % (11.5-14.5); WBC 3.8 10x3/uL (4.8-10.8)
[2018-07-22 04:47] LABS: PLATELET COUNT 61 10x3/uL (130-400)
[2018-07-22 04:55] LABS: ANION GAP 13.7 mmol/L (8-16); BILIRUBIN - TOTAL 2.73 mg/dL (0.2-1.3); CARBON DIOXIDE 21.9 mmol/L (21.0-32.0); CREATININE - SERUM 1.6 mg/dL (0.6-1.3); POTASSIUM - SERUM 3.6 mmol/L (3.5-5.1); PROTEIN - SERUM 6.3 g/dL (6.4-8.2)
[2018-07-22 13:56] LABS: BASOPHILS 0.3 % (0-2); EOSINOPHILS 1.3 % (0-7); HEMATOCRIT 30.6 % (42.0-54.0); HEMOGLOBIN 9.5 g/dL (13.5-17.5); IMMATURE GRANULOCYTES 0.3 % (0-5); LYMPHOCYTES 16.8 % (15-50); MCH 30.9 pg (26.0-34.0); MCV 99.7 fL (80.0-100.0); MEAN PLATELET VOLUME 9.6 fL (7.4-10.4); NEUTROPHILS 74.3 % (40-80); PLATELET COUNT 59 10x3/uL (130-400); RBC 3.07 10x6/uL (4.20-6.10); RDW 20.5 % (11.5-14.5); WBC 3.9 10x3/uL (4.8-10.8)
[2018-07-22 14:12] LABS: % SATURATION 42 % (15-55); IRON 72 ug/dl (35-150); TOTAL IRON BIND CAPACITY 171 ug/dl (260-445); UNSAT IRON BIND CAPACITY 99 ug/dl (150-375)
[2018-07-22 14:24] LABS: ALBUMIN 2.3 g/dL (3.4-5.0); ANION GAP 14.5 mmol/L (8-16); BILIRUBIN - TOTAL 3.01 mg/dL (0.2-1.3); CALCIUM 7.9 mg/dL (8.5-10.1); CARBON DIOXIDE 21.9 mmol/L (21.0-32.0); CREATININE - SERUM 1.6 mg/dL (0.6-1.3); POTASSIUM - SERUM 3.4 mmol/L (3.5-5.1)
[2018-07-22 20:42] LABS: HEMATOCRIT 32.1 % (42.0-54.0); HEMOGLOBIN 10.3 g/dL (13.5-17.5)
[2018-07-23 00:59] VITALS: BP 136/66
[2018-07-23 04:01] LABS: BASOPHILS 0.3 % (0-2); EOSINOPHILS 1.9 % (0-7); HEMATOCRIT 28.4 % (42.0-54.0); HEMOGLOBIN 8.9 g/dL (13.5-17.5); IMMATURE GRANULOCYTES 0.3 % (0-5); LYMPHOCYTES 19.6 % (15-50); MCH 30.8 pg (26.0-34.0); MCHC 31.3 g/dL (31.0-37.0); MCV 98.3 fL (80.0-100.0); MEAN PLATELET VOLUME 9.7 fL (7.4-10.4); MONOCYTES 9.9 % (2-11); PLATELET COUNT 56 10x3/uL (130-400); RBC 2.89 10x6/uL (4.20-6.10); RDW 20.3 % (11.5-14.5); WBC 3.2 10x3/uL (4.8-10.8)
[2018-07-23 04:04] LABS: INR 1.85 (0.85-1.17); PROTIME 20.7 SECONDS (11.6-15.0)
[2018-07-23 04:17] LABS: ANION GAP 11.9 mmol/L (8-16); BILIRUBIN - TOTAL 2.4 mg/dL (0.2-1.3); CALCIUM 7.6 mg/dL (8.5-10.1); CARBON DIOXIDE 22.3 mmol/L (21.0-32.0); CREATININE - SERUM 1.5 mg/dL (0.6-1.3); POTASSIUM - SERUM 3.2 mmol/L (3.5-5.1); PROTEIN - SERUM 6.4 g/dL (6.4-8.2)
[2018-07-23 05:00] VITALS: BP 100/61
[2018-07-23 08:47] VITALS: BP 123/82
[2018-07-23] MEDS ORDERED: CHRONULAC30 ML PO (10:23)
[2018-07-23] MEDS ORDERED: XIFAXAN550 MG PO (10:28)
[2018-07-23 12:00] VITALS: BP 120/78
[2018-07-23 13:18] VITALS: BP 125/82
[2018-07-24 07:28] LABS: FOLATE (FOLIC ACID) - SERUM 5.4 ng/mL (>3.0)
[2018-07-24 14:21] LABS: SPE - A/G RATIO 0.7 (0.7-1.7); SPE - ALBUMIN 2.6 g/dL (2.9-4.4); SPE - ALPHA-1 GLOBULIN 0.2 g/dL (0.0-0.4); SPE - ALPHA-2 GLOBULIN 0.4 g/dL (0.4-1.0); SPE - BETA GLOBULIN 0.8 g/dL (0.7-1.3); SPE - GAMMA GLOBULIN 2.5 g/dL (0.4-1.8); SPE - M-SPIKE Not Observed g/dL (Not Observed); SPE - TOTAL PROTEIN 6.6 g/dL (6.0-8.5)
== END 2018-07-23 15:01 | disposition home or self-care (01) | DRG 433 ==
LOC: D.ER 15:30 → D.M2 19:11 → D.EDHOLD 19:11 → D.ICU 19:11 → D.M2 21:43 → D.ICU 07-20 21:05 → D.MS 07-22 18:15
PROVIDERS: Family Medicine; Family Medicine Adult Medicine; Internal Medicine Gastroenterology
DX: K74.60 Unspecified cirrhosis of liver (principal); K76.6 Portal hypertension; K75.81 Nonalcoholic steatohepatitis (NASH); K72.90 Hepatic failure, unspecified without coma; F12.90 Cannabis use, unspecified, uncomplicated; D69.6 Thrombocytopenia, unspecified; D64.9 Anemia, unspecified

== ENCOUNTER → 2019-03-08 14:05 | Outpatient (CLI) | payer MEDICARE, MEDICAID ==
[2018-07-22 14:20] VITALS: BMI 54.7
[~2019-03-08 14:05] MED LIST changes: +XIFAXAN550 MG PO
== END | disposition home or self-care (01) ==
LOC: D.US 14:00
PROVIDERS: ATTEND Radiology Diagnostic Radiology
DX: K74.60 Unspecified cirrhosis of liver (principal)